=== PATIENT | female | born 2000 | race Caucasian/White ===

== ENCOUNTER → 2022-10-22 19:37 | Outpatient (CLI) | payer MEDICAID, SELFPAY ==
[2022-10-22 18:10] LABS: Basophils # 0.1 K/mm3 (0-0.2); Basophils % 0.7 % (0.1-2.0); Eosinophils # 0.1 K/mm3 (0.0-0.4); Eosinophils % 0.7 % (0.1-12.0); Hematocrit 48.5 % (37.0-47.0); Hemoglobin 15.4 g/dL (12.2-16.2); Lymphocytes # 2.8 K/mm3 (0.7-4.5); Lymphocytes % 27.2 % (10-50); Mean Corpuscular HGB Conc 31.7 g/dL (31.8-35.4); Mean Corpuscular Hemoglobin 29.4 pg (27.0-31.2); Mean Corpuscular Volume 92.8 fl (81-99); Mean Platelet Volume 9.2 fl (7.4-10.4); Monocytes # 0.6 K/mm3 (0.1-1.0); Monocytes % 5.9 % (1.7-9.3); Neutrophils # 6.8 K/mm3 (1.8-7.8); Neutrophils % 65.5 % (37.0-80.0); Platelet Count 279 K/mm3 (142-424); Red Blood Count 5.23 M/mm3 (4.20-5.40); White Blood Count 10.4 K/mm3 (4.8-10.8)
[2022-10-22 18:57] LABS: Alanine Aminotransferase 29 U/L (12-78); Albumin Level 4.5 g/dl (3.5-5.0); Albumin/Globulin Ratio 1.9 (1.1-1.8); Alkaline Phosphatase 72 U/L (38-126); Anion Gap 14.1 mEq/L (5-15); Aspartate Amino Transferase 23 U/L (14-36); Bilirubin,Total 0.5 mg/dl (0.2-1.3); Blood Urea Nitrogen 9 mg/dl (7-17); Carbon Dioxide 28 mmol/L (22.0-30.0); Chloride 102 mmol/L (98-107); Estimated Glomerular Filt Rate 103 ml/min (>60); GFR (African American) 124 ML/MIN (>60); Globulin 2.4 g/dL (1.3-3.2); Glucose 69 mg/dl (74-100); Potassium 4.1 mmoL/L (3.5-5.1); Sodium 140 mmol/L (136-145); Total Protein,Serum 6.9 g/dl (6.3-8.2)
== END ==
PROVIDERS: PCP Family Medicine; Visit Provider Family Medicine
DX: R10.2 Pelvic and perineal pain (principal); N39.0 Urinary tract infection, site not specified
CPT/HCPCS: 80053; 85025; 87086

== ENCOUNTER → 2022-10-23 15:04 | Outpatient (CLI) | payer MEDICAID, SELFPAY ==
--- NOTE | 2022-10-23 15:12 | XR_ITS ---
FINAL REPORT CLINICAL HISTORY: low back pain FINDINGS: LUMBAR SPINE Three views were obtained. There is no acute fracture. There is no malalignment. The disc spaces are preserved. There is no soft tissue abnormality. IMPRESSION: No acute bony abnormality. Reviewed, Interpreted and Dictated by Kai Milton MD Transcribed by Cassandra Kennedy Authenticated and [facility]
--- NOTE | 2022-10-23 15:12 | XR_ITS ---
FINAL REPORT CLINICAL HISTORY: hematuria COMPARISON: none FINDINGS: ABDOMEN SINGLE VIEW / KUB A single view of the abdomen was obtained with a coned down view of the pelvis. There is a nonspecific bowel gas pattern. There is no significant stool burden. There are no abnormally dilated loops of small bowel. No abnormal calcification is identified. IMPRESSION: No acute process. Reviewed, Interpreted and Dictated by Kai Milton MD Transcribed by Carolina Her Authenticated and [facility]
[2022-10-23 15:44] LABS: Urine Pregnancy, HCG Qual. Negative (Negative)
== END ==
PROVIDERS: Physician Assistant; PCP Family Medicine; Visit Provider Family Medicine
DX: M54.50 Low back pain, unspecified (principal); R31.9 Hematuria, unspecified
CPT/HCPCS: 72100; 74018; 81025

== ENCOUNTER → 2023-01-21 14:46 | Outpatient (CLI) | payer MEDICAID, SELFPAY ==
[2023-01-21 15:37] LABS: HCG,Quantitative 1968 mIU/ml (0-5.42)
[2023-01-23 14:28] LABS: Progesterone 12.4 ng/mL (.)
== END ==
PROVIDERS: PCP Nurse Practitioner Family; Visit Provider Obstetrics & Gynecology
DX: Z32.01 Encounter for pregnancy test, result positive (principal)
CPT/HCPCS: 36415; 84144; 84702

== ENCOUNTER → 2023-02-16 15:15 | Outpatient (CLI) | payer MEDICAID, SELFPAY | PROVIDERS: Visit Provider Obstetrics & Gynecology | DX: Z34.91 Encounter for supervision of normal pregnancy, unspecified, first trimester (principal); Z3A.08 8 weeks gestation of pregnancy | CPT/HCPCS: 87086 ==

== ENCOUNTER → 2023-03-09 10:53 | Outpatient (CLI) | payer MEDICAID, SELFPAY ==
[2023-03-09 12:03] LABS: Basophils % 0.3 % (0.1-2.0); Eosinophils # 0.1 K/mm3 (0.0-0.4); Eosinophils % 0.6 % (0.1-12.0); Hematocrit 44.5 % (37.0-47.0); Hemoglobin 14.6 g/dL (12.2-16.2); Lymphocytes # 2.3 K/mm3 (0.7-4.5); Lymphocytes % 15.7 % (10-50); Mean Corpuscular HGB Conc 32.8 g/dL (31.8-35.4); Mean Corpuscular Volume 91.4 fl (81-99); Monocytes # 0.7 K/mm3 (0.1-1.0); Monocytes % 4.4 % (1.7-9.3); Neutrophils # 11.8 K/mm3 (1.8-7.8); Neutrophils % 79.1 % (37.0-80.0); Platelet Count 255 K/mm3 (142-424); Red Blood Count 4.87 M/mm3 (4.20-5.40); White Blood Count 14.9 K/mm3 (4.8-10.8)
[2023-03-10 10:31] LABS: Rapid Plasma Reagin Ab Titer Non Reactive (NonRea<1:1)
[2023-03-12 12:49] LABS: HIV Screen 4th Generation wRfx Non Reactive; Hepatitis B Surface Antigen Negative
[2023-03-12 12:50] LABS: Hepatitis C Antibody Non Reactive
== END ==
PROVIDERS: PCP Family Medicine; Visit Provider Obstetrics & Gynecology
DX: Z34.91 Encounter for supervision of normal pregnancy, unspecified, first trimester (principal); Z3A.11 11 weeks gestation of pregnancy
CPT/HCPCS: 36415; 85025; 86593; 86703; 86762; 86850; 87340; 87380; G0432

== ENCOUNTER 2023-07-06 09:02 | Outpatient (CLI) | payer MEDICAID, SELFPAY ==
[2023-07-06 09:49] LABS: Basophils % 0.2 % (0.1-2.0); Eosinophils # 0.2 K/mm3 (0.0-0.4); Eosinophils % 0.9 % (0.1-12.0); Hematocrit 36.8 % (37.0-47.0); Hemoglobin 12.6 g/dL (12.2-16.2); Lymphocytes # 2.4 K/mm3 (0.7-4.5); Lymphocytes % 13.6 % (10-50); Mean Corpuscular HGB Conc 34.1 g/dL (31.8-35.4); Mean Corpuscular Hemoglobin 31.4 pg (27.0-31.2); Mean Corpuscular Volume 91.8 fl (81-99); Mean Platelet Volume 8.4 fl (7.4-10.4); Monocytes # 0.8 K/mm3 (0.1-1.0); Monocytes % 4.4 % (1.7-9.3); Neutrophils # 14.3 K/mm3 (1.8-7.8); Neutrophils % 80.9 % (37.0-80.0); Platelet Count 243 K/mm3 (142-424); Red Cell Distribution Width 13.4 % (11.5-17.5); White Blood Count 17.7 K/mm3 (4.8-10.8)
[2023-07-06 09:55] LABS: Glucose,Fasting 80 mg/dl (74-100)
[2023-07-06 09:56] LABS: MANUAL DIFFERENTIAL MANUAL DIFFERENTIAL (MANUAL DIFF)
[2023-07-06 10:50] VITALS: BP 137/59; PULSE 77; RESP 18; TEMP 36.8; O2SAT 99
[2023-07-06 11:03] LABS: Eosinophils % 2 % (0-3); Lymphocytes % 14 % (10-50); Monocytes % 5 % (2-9); Neutrophils % 78 % (42-76); Total Cells Counted 100
[2023-07-06 11:04] LABS: Platelet Estimate Normal; RBC Morphology Normal
[2023-07-06 11:15] LABS: Glucose 1 Hour 92 mg/dL (74-100)
== END 2023-07-06 11:00 | disposition home or self-care (01) ==
PROVIDERS: PCP Nurse Practitioner Family; Visit Provider Obstetrics & Gynecology
DX: Z3A.28 28 weeks gestation of pregnancy; O30.043 Twin pregnancy, dichorionic/diamniotic, third trimester; Z67.91 Unspecified blood type, Rh negative
CPT/HCPCS: 36415; 82951; 85007; 85025; 85027; 96372; J2790

== ENCOUNTER → 2023-07-08 13:23 | Outpatient (CLI) | payer MEDICAID, SELFPAY ==
--- NOTE | 2023-07-08 13:33 | US_ITS ---
PROCEDURE: US OB BIOPHYSICAL PROFILE CLINICAL INDICATION: Di/Di Twins-BPP/YVAN and UA Doppler COMPARISON: FINDINGS: Transabdominal sonographic images of the uterus were obtained. From her established due date she is 29weeks 0 days. Twin A: The following parameters are obtained: Viable fetus in the breech presentation with an anterior placenta grade 1. The fluid is within normal limits. The fetus is active and breathing movement is seen. heart rate: 135bpm bpm. The fluid appears to be normal with an equal amount of fluid on either side of the amnion. No obvious anomalies are present: Profile, nasion, bladder, diaphragm, kidneys, four-chamber heart, stomach, three-vessel cord, appear normal. Mild unilateral renal pyelectasis measuring 4.9 mm SD ratio slightly elevated 4.38-5.28. Amniotic fluid index: 12.54cm, MVP 6.2 cm Qualitative AFV: 2 breathing movements: 2 Gross body movements: 2 Tone: 2 Biophysical profile score: 8 Twin B: Following parameters are obtained: Viable fetus in the breech presentation with a posterior placenta grade 1. Fluid is within normal limits. Fetus is active and breathing movements are seen. heart rate: 135 BPM SD ratio 4.05-4.65 No obvious anomalies evident.Kidneys, diaphragm, stomach, bladder, four-chamber heart, three-vessel cord appear normal. Quantitative AFV: 2 breathing movements: 2 Gross body movements: 2 tone: 2 Biophysical profile: 8 IMPRESSION: 1. Viable twin with both fetuses in the breech presentation. 2. There appear to be 2 placentas, 1 anteriorly and 1 posteriorly. 3. SD ratios are slightly elevated for both fetuses. 4. The fluid is within normal limits around each fetus. 5. There is mild unilateral renal pyelectasis on fetus A measuring 4.9 mm. Suggest follow-up. 6. Biophysical profile is 8/8 for both fetuses with good breathing movement seen in each fetus. Dictated by: Roger Gonsalves MD 07/09/2023 16:35 Roger Gonsalves MD in [place] 07/09/2023 16:35
== END ==
LOC: RAD 13:23
PROVIDERS: PCP Nurse Practitioner Family; Visit Provider Obstetrics & Gynecology
DX: O30.043 Twin pregnancy, dichorionic/diamniotic, third trimester (principal); Z3A.28 28 weeks gestation of pregnancy
CPT/HCPCS: 76819; 76820

== ENCOUNTER 2023-07-23 12:34 | Outpatient (CLI) | payer MEDICAID, SELFPAY ==
--- NOTE | 2023-07-23 12:34 | US_ITS ---
PROCEDURE: US OB BIOPHYSICAL PROFILE CLINICAL INDICATION: Di/Di Twins-US OB BPP/YVAN and UA Doppler COMPARISON: FINDINGS: Transabdominal sonographic images of the pelvis were obtained. From her established due date she is 31weeks 1day. DICHORIONIC DIAMNIOTIC TWINS. TWIN A: The following parameters are obtained: Viable fetus in the breech presentation with an anterior placenta grade 1. heart rate: 142bpm bpm. Amniotic fluid index: 10.87cm, MVP 2.08 cm for twin A Qualitative AFV: 2 breathing movements: 2 Gross body movements: 2 Tone: 2 Biophysical profile score: 8 Doppler evaluation of the umbilical artery: SD ratio: 3.42-3.78. Resistive index: 0.69 No obvious anomalies evident.Kidneys, four-chamber heart, bladder, three-vessel cord appear normal. TWIN B: The following parameters are obtained: Viable fetus in the cephalic presentation with a posterior placenta grade 1 heart rate: 126bpm Amniotic fluid index: 10.87cm, MVP 5.62 cm for twin B Qualitative AFV: 2 breathing movements: 2 Gross body movements: 2 Tone: 2 Biophysical profile score: 8 Doppler evaluation of the umbilical artery: SD ratio: 3.8-4.29. Resistive index: 0.69 No obvious anomalies evident. Four-chamber heart, lips and nose, bladder, three-vessel cord, kidneys, appear normal. IMPRESSION: 1. Viable twin dichorionic, diamniotic twins. 2. Twin A is in the breech presentation with an anterior placenta 1. 3. The fluid is within normal limits around Twin A. 4. Biophysical profile for twin A is 8/8 with good breathing movement seen. SD ratio is normal for twin A. 5. Twin B is in the vertex presentation with a posterior placenta grade 1. 6. The fluid is within normal limits around Twin B. MVP 5.62 for twin B 7. Biophysical profile 8/8 with good breathing movement seen in twin B. SD ratio is normal for twin B. 8. Total YVAN for all 4 quadrants is 10.87 cm. Dictated by: Roger Gonsalves MD 07/23/2023 15:57 Roger Gonsalves MD in [facility] 07/23/2023 15:57
== END 2023-07-23 23:59 ==
LOC: RAD 12:34
PROVIDERS: PCP Nurse Practitioner Family; Visit Provider Obstetrics & Gynecology
DX: O30.043 Twin pregnancy, dichorionic/diamniotic, third trimester (principal); Z3A.31 31 weeks gestation of pregnancy
CPT/HCPCS: 76819; 76820

== ENCOUNTER 2023-08-03 15:51 | Outpatient (CLI) | payer MEDICAID, SELFPAY ==
--- NOTE | 2023-08-03 15:54 | US_ITS ---
PROCEDURE: US OB BIOPHYSICAL PROFILE CLINICAL INDICATION: NST Non reactive on One of the Twins-Baby Girl COMPARISON: Ultrasound July 23, 2023 FINDINGS: Transabdominal sonographic images of the uterus were obtained. From her established due date she is 32weeks 5days. Twin gestation. TWIN A: The following parameters are obtained: Viable fetus in the breech presentation with an anterior placenta grade 1. The cervix measures 3.53 cm. heart rate: 122bpm Amniotic fluid: MVP 1.64 cm. Qualitative AFV: 2 breathing movements: 2 Gross body movements: 2 Tone: 2 Biophysical profile score: 8 No obvious anomalies evident.Kidneys, stomach, bladder, four-chamber heart, three-vessel cord appear normal. TWIN B: The following parameters are obtained: Viable fetus in the cephalic presentation with a posterior placenta grade 1. heart rate 126 BPM. Amniotic fluid: MVP 3.01 cm. Qualitative YVAN: 2 breathing movements: 2 Gross body movements: 2 tone: 2 Biophysical profile score: 8 No obvious anomalies evident. Kidneys, stomach, bladder, four-chamber heart, three-vessel cord appear normal. IMPRESSION: 1. Viable twin with TWIN A in the breech presentation with an anterior placenta grade 1, TWIN B is in the cephalic presentation with a posterior placenta grade 1. 2. Dichorionic diamniotic twins. 3. Fluid is slightly low in TWIN A with the MVP at 1.64 cm. 4. TWIN B fluid is normal with the MVP at 3.01 cm. 5. Biophysical profile is 8/8 for both twins. breathing movement and movement is seen in both twins. Dictated by: Roger Gonsalves MD 08/04/2023 09:05 Roger Gonsalves MD in [place] 08/04/2023 09:05
== END 2023-08-03 23:59 ==
LOC: RAD 15:52
PROVIDERS: PCP Family Medicine; Visit Provider Obstetrics & Gynecology
DX: O28.8 Other abnormal findings on antenatal screening of mother (principal); O30.043 Twin pregnancy, dichorionic/diamniotic, third trimester; Z3A.32 32 weeks gestation of pregnancy
CPT/HCPCS: 76819

== ENCOUNTER 2023-08-20 14:05 | Outpatient (CLI) | payer MEDICAID, SELFPAY ==
--- NOTE | 2023-08-20 14:06 | US_ITS ---
PROCEDURE: US OB BIOPHYSICAL PROFILE CLINICAL INDICATION: TWINS-BPP only COMPARISON: US US OB BIOPHYSICAL PROFILE from 07/23/2023 US US OB BIOPHYSICAL PROFILE from 08/03/2023 FINDINGS: Transabdominal sonographic images of the uterus were obtained. From her established due date she is 35weeks 1day. The following parameters are obtained: Fetus A: Viable Fetus in the breech presentation with and anterior placenta grade 2. heart Rate = 135bpm Amniotic fluid index: 8.91cm Qualitative AFV:2 Breathing movements: 2 Gross Body Movements: 2 Tone: 2 Biophysical profile score: 8 Doppler evaluation of the umbilical artery: SD ratio: 2.72 Resistive index: 0.63 No obvious anomalies evident.Kidneys, nose, lips, stomach, bladder, four-chamber heart, three-vessel cord appear normal. Fetus B: Viable fetus in the cephalic presentation with a posterior placenta grade 2. heart rate 135 BPM Amniotic Fluid index: 8.91 cm, MVP 5.23 cm on right side. Qualitative YVAN: 2 breathing movements: 2 Gross body movements: 2 tone: 2 Biophysical profile 8 S/D ratio 2.9. Resistance index: 0.65 No obvious anomalies evident. Kidneys, stomach, bladder, four-chamber heart, three-vessel cord appear normal. IMPRESSION: 1. Viable twin with fetus A in the breech presentation with an anterior placenta grade 2. 2. Fetus B in the cephalic presentation with a posterior placenta grade 2. 3. There appears to be adequate fluid around each fetus. MVP is 5.23 cm. 4. There are 2 separate placentas both anteriorly located and posterior located. There is a membrane both fetuses. Dichorionic diamniotic. 5. Biophysical profile is 8/8 for both fetuses. There is good breathing movement and movement seen for both fetuses. 6. SD ratios are normal for both fetuses. Dictated by: Roger Gonsalves MD 08/20/2023 16:46 Roger Gonsalves MD in [place] 08/20/2023 16:46
== END 2023-08-20 23:59 ==
LOC: RAD 14:06
PROVIDERS: PCP Family Medicine; Visit Provider Obstetrics & Gynecology
DX: O28.8 Other abnormal findings on antenatal screening of mother (principal); O30.043 Twin pregnancy, dichorionic/diamniotic, third trimester; O99.323 Drug use complicating pregnancy, third trimester; Z67.91 Unspecified blood type, Rh negative
CPT/HCPCS: 76819; 76820

== ENCOUNTER 2023-09-09 04:39 | Inpatient (IN) | payer MEDICAID, SELFPAY ==
[2023-09-09] VITALS (7 sets, daily range): BP systolic 116–143; BP diastolic 63–79; PULSE 88–110; RESP 16–18; TEMP 36.6–36.8; O2SAT 97–100; BMI 40.5
[2023-09-09 05:38] LABS: Microscopic, Urine URINE MICROSCOPIC (MICROSCOPIC)
[2023-09-09 05:40] LABS: Basophils % 0.1 % (0.1-2.0); Eosinophils # 0.1 K/mm3 (0.0-0.4); Eosinophils % 0.7 % (0.1-12.0); Hemoglobin 12.6 g/dL (12.2-16.2); Lymphocytes # 1.7 K/mm3 (0.7-4.5); Lymphocytes % 9.8 % (10-50); Mean Corpuscular HGB Conc 32.4 g/dL (31.8-35.4); Mean Corpuscular Hemoglobin 29.4 pg (27.0-31.2); Mean Corpuscular Volume 90.7 fl (81-99); Mean Platelet Volume 9.3 fl (7.4-10.4); Monocytes # 1.2 K/mm3 (0.1-1.0); Monocytes % 6.9 % (1.7-9.3); Neutrophils % 82.4 % (37.0-80.0); Platelet Count 278 K/mm3 (142-424); Red Cell Distribution Width 13.8 % (11.5-17.5)
[2023-09-09 05:40] LABS: Appearance,Urine CLEAR (Clear); Bilirubin,Urine Negative (Negative); Blood, Urine Negative (Negative); Color,Urine YELLOW (Yellow); Glucose,Urine (UA) Negative (Negative); Ketones,Urine Negative (Negative); Leukocyte Esterase,Urine Negative (Negative); Nitrate,Urine Negative (Negative); PH,Urine 6.5 (5.0-8.5); Protein,Urine Negative (Negative); Specific Gravity, Urine 1.025 (1.005-1.030); Urobilinogen,Urine 0.2 EU/dl (0.2)
[2023-09-09 05:42] LABS: MANUAL DIFFERENTIAL MANUAL DIFFERENTIAL (MANUAL DIFF)
[2023-09-09 05:46] LABS: Chloride 111 mmol/L (98-107); Potassium 3.9 mmoL/L (3.5-5.1); Sodium 137 mmol/L (136-145)
[2023-09-09 05:48] LABS: Blood Urea Nitrogen 5 mg/dl (7-17); Creatinine Clearance Estimated 386 mL/min (50-200); Estimated Glomerular Filt Rate 194 ml/min (>60); GFR (African American) 235 ML/MIN (>60)
[2023-09-09 05:49] LABS: Alanine Aminotransferase 19 U/L (12-78); Albumin Level 3.6 g/dl (3.5-5.0); Albumin/Globulin Ratio 1.4 (1.1-1.8); Alkaline Phosphatase 177 U/L (38-126); Anion Gap 5.9 mEq/L (5-15); Aspartate Amino Transferase 25 U/L (14-36); Bilirubin,Total 0.3 mg/dl (0.2-1.3); Calcium 9.1 mg/dl (8.4-10.2); Carbon Dioxide 24 mmol/L (22.0-30.0); Globulin 2.5 g/dL (1.3-3.2); Glucose 79 mg/dl (74-100); Total Protein,Serum 6.1 g/dl (6.3-8.2)
[2023-09-09 05:52] LABS: Bacteria,Urine 1+ /lpf; Mucus,Urine 1+ /lpf
[2023-09-09 05:55] LABS: Amphetamine/Metha Screen,Urine Negative ng/ml (<1000)
[2023-09-09] MEDS: LACTATED RINGERS 1000ML 1,000 ML 25 ML IV (05:55)
[2023-09-09 05:56] LABS: Lymphocytes % 11 % (10-50); Monocytes % 6 % (2-9); Neutrophils % 83 % (42-76); Total Cells Counted 100
[2023-09-09 05:56] LABS: Barbiturates Screen,Urine Negative ng/ml (<200); Benzodiazepines Screen,Urine Negative ng/ml (<200)
[2023-09-09 05:57] LABS: Cannabinoid Screen,Urine Positive ng/ml (<50); Cocaine Screen,Urine Negative ng/ml (<300)
[2023-09-09 05:57] LABS: Platelet Estimate Normal; RBC Morphology Normal
[2023-09-09 05:58] LABS: Methadone Screen,Urine Negative ng/ml (<300)
[2023-09-09 05:59] LABS: Opiate Screen,Urine Negative ng/ml (<300); Phencyclidine Screen,Urine Negative ng/ml (<25)
--- NOTE | 2023-09-09 06:56 | P.HP_ITS ---
OB - H&P: HPI Antepartum History of Present Illness Chief complaint: Scheduled History of present illness: Ms Martha Peraza is a 23 yo at 38w0d who presents to [facility] for scheduled , di/di twin . She has had good care. She is complete with childbearing and desires permanent sterilization at time of . Babies are active. History of Present Criteria for establishing EDC:: based on 1st trimester US only care: good care Ultrasounds: normal mid trimester US Obstetrical complications: none Medical complications: none Labs Blood type: A (-) negative Rubella: immune RPR/VDRL: nonreactive GBS status: negative [facility]AG: [facility] Disclaimer: The information contained in this section may have been updated after the patient was seen, as this information can be updated by other users. Medical History (Updated 09/09/23 @ 07:03 by Jessica Hoyt DO) 38 weeks gestation of Dichorionic diamniotic twin gestation Drug use affecting , antepartum History of gestational hypertension Marijuana use during Methamphetamine abuse Request for sterilization Rh negative status during Tobacco use affecting , antepartum Surgical History History of surgery on arm History of wisdom tooth extraction Family History Grandmother Cancer Maternal-ovarian Social History Smoking Status: Current every day smoker tobacco type: cigarettes second hand exposure: Yes alcohol intake: current substance use type: marijuana current occupational status: employed Travel in the last 8 weeks: None household members: children housing: house marital status: Review of Systems Review of Systems Review of systems:: pertinent systems reviewed and negative unless documented below Meds Home Medications and Allergies Home Medications Medication Instructions Recorded Confirmed Type vits no.126-ferrous fum tab PO DAILY 03/26/23 09/04/23 History 28 mg iron-folic acid 800 mcg tablet (Classic ) albuterol sulfate 90 mcg/actuation 1 inh inhalation QID #6.7 grams 05/29/23 09/04/23 Rx aerosol inhaler New Prescriptions to Start Prescriptions: Allergies Allergy/AdvReac Type Severity Reaction Status Date / Time erythromycin base Allergy swelling Verified 09/04/23 08:37 [From E-Mycin] latex Allergy Verified 09/04/23 08:37 OB - H&P: Exam Physical Exam Vital signs: Temp Pulse Resp BP Pulse Ox O2 Del Method 98.1 F 107 H 18 143/78 H 97 Room Air 09/09/23 06:16 09/09/23 06:16 09/09/23 06:16 09/09/23 06:16 09/09/23 06:16 09/09/23 06:16 Constitutional no acute distress and cooperative Routine HEENT Exam Head: Present normocephalic and atraumatic Eye: Absent conjunctivae pink ENT: Present mucous membranes moist Routine Neck Exam Present full ROM Routine Respiratory Exam Present CTA bilaterally and normal respiratory effort Routine Cardiovascular Exam Present RRR Routine Abdominal Exam Present soft (Gravid); Absent tenderness Routine Rectal Exam Patient deferred: visual exam Routine Exam External: Present normal urethra appearance; Absent erythema, tenderness, lesions or lacerations Routine Extremities Exam Present full ROM; Absent edema or calf tenderness Routine Neurological Exam Present alert, moving all extremities and normal speech Routine Psychiatric Exam Present normal affect and cooperative OB - Results Labs Labs: Short CBC 09/09/23 Range/Units 05:20 WBC 17.0 H (4.8-10.8) K/mm3 Hgb 12.6 (12.2-16.2) g/dL Hct 39.0 (37.0-47.0) % Plt Count 278 (142-424) K/mm3 BMP 09/09/23 05:20 Sodium 137 Potassium 3.9 Chloride 111 H Carbon Dioxide 24 BUN 5 L Creatinine 0.40 L Glucose 79 Calcium 9.1 Liver Function 09/09/23 Range/Units 05:20 Total Bilirubin 0.3 (0.2-1.3) mg/dl AST 25 (14-36) U/L ALT 19 (12-78) U/L Alkaline Phosphatase 177 H (38-126) U/L Albumin 3.6 (3.5-5.0) g/dl Urine 09/09/23 Range/Units 05:15 Urine Color Yellow (Yellow) Urine Appearance Clear (Clear) Urine pH 6.5 (5.0-8.5) Ur Specific [place] 1.025 (1.005-1.030) Urine Protein Negative (Negative) Urine Glucose (UA) Negative (Negative) OB - A/P Antepartum (1) 38 weeks gestation of : Status: Acute (2) Dichorionic diamniotic twin gestation: Status: Acute (3) Tobacco use affecting , antepartum: Status: Acute (4) Marijuana use during : Status: Acute (5) History of gestational hypertension: Status: Acute (6) Rh negative status during : Status: Acute (7) Request for sterilization: Status: Acute Additional Plan Additional Information:: Admit to L&D for primary with bilateral salpingectomy Reviewed risks, benefits, alternatives, expectations and possible complications of surgery. All questions addressed and answered. She voiced understanding of risks and possible complications. Consent form singed. Proceed with scheduled primary , bilateral salpingectomy
--- NOTE | 2023-09-09 07:42 | HMH.PHAINT1 ---
Pharmacy Intervention Comments: MEDICATION RECONCILIATION COMPLETED ON PATIENT USING EXTERNAL FILL HISTORY FROM PHARMACY. -CHIQUI MARCOS, EDUARD
--- NOTE | 2023-09-09 08:13 | EXP.ANES.CKL ---
[facility] Disclaimer: The information contained in this section may have been updated after the patient was seen, as this information can be updated by other users. Medical History (Updated 09/09/23 @ 07:03 by Jessica Hoyt DO) 38 weeks gestation of Dichorionic diamniotic twin gestation Drug use affecting , antepartum History of gestational hypertension Marijuana use during Methamphetamine abuse Request for sterilization Rh negative status during Tobacco use affecting , antepartum Surgical History History of surgery on arm History of wisdom tooth extraction Family History Grandmother Cancer Maternal-ovarian Social History Smoking Status: Current every day smoker tobacco type: cigarettes second hand exposure: Yes alcohol intake: current substance use type: marijuana current occupational status: employed Travel in the last 8 weeks: None household members: children housing: house marital status: [facility] Anesthesia Checklist Patient Identification Patient Identification: Arm Band Structural Data Admitted From: Inpatient Planned Operative Procedure/s: Primary C/S Consent for Planned Operative Procedure(s) Verified: Yes Verified Documents: Surgical Consent and History and Physical NPO Status Verified Time NPO: 00:00 Additional verifications Anesthesia Reactions: No Airway Assessment Mallampati Score:: Class II C-Spine Mobility Assessed: Yes TMJ Mobility Assessed: Yes Dentition: Good Dentition Neurological Assessment Level of Consciousness: Awake and Alert Anesthesia Plan Anesthesia Risk discussed: Yes Anesthesia Plan: Verified ASA Class: I Anesthesia Type: Spinal (with Bilateral TAP Block. Risks/benefits explained. Pt verbalized understanding)
[2023-09-09] MEDS: CEFAZOLIN SODIUM 2 GM in 0.9 % SODIUM CHLORIDE 100 ML IV ×2 (08:31→16:10)
--- NOTE | 2023-09-09 09:53 | P.OP_ITS ---
Date of procedure: 09/09/23 Pre-op Diagnosis:: 1. IUP at 38 weeks 2. Di/di twin 3. Tobacco use during 4. Marijuana use during 5. History of GHTN in prior 6. Rh negative 7. Complete family status, desires permanent sterilization Post-op Diagnosis:: 1. IUP at 38 weeks 2. Di/di twin 3. Tobacco use during 4. Marijuana use during 5. History of GHTN in prior 6. Rh negative 7. Complete family status, desires permanent sterilization Procedure performed:: Primary low transverse section, bilateral salpingectomy Surgeon:: Jessica Hoyt DO Zoo Director(s):: Roger Gonsalves MD WAREHOUSE SHIPPING SUPERVISOR:: Marquise Bradley Anesthesia: spinal Estimated blood loss (mL): 600 Clinical Note:: Ms Martha Peraza is a 23 yo at 38w0d who presents to [facility] for scheduled , di/di twin . She has had good care. She is complete with childbearing and desires permanent sterilization at time of . Babies are active. Operative findings:: 1. Live baby boy in josiane breech presentation, Sawyer, weighing 5 lb 8 oz, AGPARs 9 (1 min), 10 (5 min) and and live baby girl in cephalic presentation, Alok, weighing 5 lb 9 oz, AGPARs 8 (1 min), 9 (5 min) 2. Grossly normal appearing uterus, bilateral fallopian tubes and ovaries Operative note:: The risks, benefits and alternatives of the procedure were reviewed with the patient. Informed consent was obtained. Patient was taken to the operating room where spinal anesthesia was placed. The patient received 2 grams of Ancef preoperatively. Patient was placed in dorsal supine position with a leftward tilt. SCDs in place. Morales catheter had been placed and was draining clear urine prior to the start of the procedure. heart tones were obtained. Patient was then prepped and draped in normal sterile fashion. Allis clamp test was performed to ensure adequate anesthesia. A Pfannenstiel skin incision was made 2 cm above pubic symphysis. This was carried through to underlying layer of fascia. Fascia was incised in midline, extended laterally with Jenkins scissors. Superior aspect of fascial incision was grasped with two Kathleen clamps, elevated up, and rectus muscle dissected off bluntly and sharply with Jenkins scissors. Inferior aspect of fascial incision was grasped with two Kathleen clamps, elevated up, and rectus muscle dissected off bluntly and sharply with Jenkins scissors. The retcus muscle was then in the midline and the peritoneum was entered bluntly with a digit. Peritoneal incision was then extended superiorly and inferiorly with good visualization of the bladder. Matt retractor was inserted. The lower uterine segment was incised in a transverse fashion. Clear amniotic fluid was noted. Baby A was josiane breech presentation. He was delivered using standard breech delivery techniques without difficulty. Mouth and nares bulb suctioned, warmed, dried and stimulated. Cord was clamped and cut. Spontaneous cry noted. He was handed off to awaiting pediatric staff. Amniotomy was performed for baby B. Clear fluid noted. Her head was delivered without difficulty. Remainder of body was delivered without difficulty. Mouth and nares were bulb suctioned. Spontaneous cry was noted. Cord was clamped and cut. The infant was handed to awaiting pediatric staff in stable condition. Dr. Hdz and Dr. Delacruz were present. Apgars for baby A were 9(1 min), 10(5 min). Apgars for baby B were A were 8(1 min), 9(5 min).Gentle traction on the umbilical cord and uterine fundal massage delivered the placenta. Placenta was intact. Placenta will be sent to pathology for review. Uterus was cleared of all clots and debris with a moist laparotomy sponge. Corners of the uterine incision were grasped with Allis clamps. The uterine incision was reapproximated with # 1 Vicryl suture in a running, locked stitch. Second layer of the same stitch was used to imbricate the incision. Vesicouterine peritoneum was reapproximated in a running locked stitch with 0- Vicryl suture. Hemostasis was noted. Posterior cul-de-sac was cleaned with moist laparotomy sponge. Gutters cleared of all clots and debris with a moist laparotomy sponge. Reinspection of the lower uterine segment demonstrated hemostasis. Attention was then turned to the left fallopian tube, which was grasped with a Jonas clamp. Enseal device was used to clamp, ligate and transect the right mesosalpinx and fallopian tube at uterine cornua,. Same procedure was carried out on the contralateral side At this point all instruments and sponges were removed from the pelvis.? The peritoneum was grasped with Verna clamps x 3. The peritoneum was reapproximated with 0 Vicryl suture in a running stitch. The rectus muscle was reapproximated with 2-0 Vicryl. Hemostasis was noted. The corners of the fascia were grasped with Kathleen clamps, and the fascia was reapproximated with two # 1 Vicryl suture overlapped to the right of midline. Subcutaneous tissue was irrigated with clear return of fluids. The subcutaneous tissue was reapproximated with 3-0 Vicryl. The skin was reapproximated with Insorb cornell. Steri strips applied over closed incision. ABD and tape was placed over closed Pfannenstiel skin incision. At the end of the procedure, the uterus was firm with minimal vaginal bleeding. Patient tolerated the procedure well. Instrument, sponges and needle counts were correct x 2. Mom and babies were transported to recovery room in stable condition. Condition: stable Disposition: floor Specimens:: 1. Placentas and umbilical cords 2. Bilateral fallopian tubes Complications:: None
--- NOTE | 2023-09-09 10:06 | EXP.ANES.I ---
[facility] Anesthesia Record Part I Anesthesia Record I Intake, IV Amount: 2,000 Hydration: Adequate Estimated blood loss (mL): 600 Urine output (mL): 150 Blood Products used (#): none Blood Pressure: 119/71 SaO2: 99 Pulse Rate: 110 Airway Patency: Patent Respiratory Rate: 16 Temperature: 97.9 F Patient is:: Awake and Stable Stable to PACU at:: 09:55
--- NOTE | 2023-09-09 10:16 | SUR.OPER ---
baby A- [id number] baby B-[id number]
[2023-09-09] MEDS: OXYTOCIN/RINGERS LACTATE 30 UNITS/500 ML BAG 40 UNITS IV (10:30)
[2023-09-09] MEDS: ACETAMINOPHEN 500MG TAB 1000 MG PO ×3 (11:07→23:20)
[2023-09-09] MEDS: KETOROLAC 30MG/ML VIAL 30 MG IV ×2 (16:10→22:41)
[2023-09-09] MEDS: PRENATAL MULTIVITAMIN W/IRON 1 EACH PO (17:20)
[2023-09-10] MEDS: CEFAZOLIN SODIUM 2 GM in 0.9 % SODIUM CHLORIDE 100 ML IV (00:26)
[2023-09-10 06:13] LABS: Basophils % 0.2 % (0.1-2.0); Eosinophils # 0.1 K/mm3 (0.0-0.4); Eosinophils % 0.5 % (0.1-12.0); Hematocrit 37.7 % (37.0-47.0); Lymphocytes # 1.4 K/mm3 (0.7-4.5); Lymphocytes % 12.8 % (10-50); Mean Corpuscular HGB Conc 31.8 g/dL (31.8-35.4); Mean Corpuscular Hemoglobin 29.5 pg (27.0-31.2); Mean Platelet Volume 9.1 fl (7.4-10.4); Monocytes # 0.9 K/mm3 (0.1-1.0); Monocytes % 8.1 % (1.7-9.3); Neutrophils # 8.3 K/mm3 (1.8-7.8); Neutrophils % 78.3 % (37.0-80.0); Platelet Count 249 K/mm3 (142-424); Red Blood Count 4.06 M/mm3 (4.20-5.40); White Blood Count 10.6 K/mm3 (4.8-10.8)
[2023-09-10] MEDS: KETOROLAC 30MG/ML VIAL 30 MG IV (06:20)
[2023-09-10] MEDS: ACETAMINOPHEN 500MG TAB 1000 MG PO ×3 (06:21→18:09)
--- NOTE | 2023-09-10 07:31 | EXP.ACUTE.PN ---
Subjective *Date: 09/10/23 *Time: 07:35 Interval history: POD # 1 s/p PLTCS with bilateral salpingectomy Martha is feeling well. Pain controlled. Formula feeding. Appropriate lochia. Voiding without difficulty and passing flatus. Tolerating regular diet. No fever/chills, chest pain or shortness of breath. Denies headaches, vision changes, and swelling. Ambulating well ad yadira. Medical Exam Vital signs and Labs for Last 24 Hours: Vital Signs Temp Pulse Pulse Resp BP BP Pulse Ox 09/09/23 21:08 98.3 F 106 H 18 137/73 97 09/09/23 10:15 100 H 16 116/76 100 09/09/23 10:25 100 H 16 122/79 99 09/09/23 10:05 88 16 125/63 98 09/09/23 09:55 97.9 F 110 H 16 119/71 99 09/09/23 10:07 97.9 F 110 H 16 119/71 O2 Del Method 09/09/23 21:08 Room Air 09/09/23 10:15 Room Air 09/09/23 10:25 Room Air 09/09/23 10:05 Room Air 09/09/23 09:55 Room Air 09/09/23 10:07 Intake and Output 09/09/23 09/09/23 09/10/23 15:59 23:59 07:59 Intake Total 1999 Balance 1999 Intake: Intake, Total IV Amount 1999 Laboratory Results - last 24 hr 09/09/23 05:20: Blood Type A Negative, Antibody Screen Positive, Antibody Identification Anti-D, Crossmatch (AHG) See Detail 09/10/23 05:16: WBC 10.6 D, RBC 4.06 L, Hgb 12.0 L, Hct 37.7, MCV 93.0, MCH 29.5, MCHC 31.8, RDW 14.0, Plt Count 249, MPV 9.1, Neut % (Auto) 78.3, Lymph % (Auto) 12.8, [place] % (Auto) 8.1, Eos % (Auto) 0.5, Baso % (Auto) 0.2, Neut # (Auto) 8.3 H, Lymph # (Auto) 1.4, [place] # (Auto) 0.9, Eos # (Auto) 0.1, Baso # (Auto) 0.0 I & O for Labs for Last 24 Hours: Intake & Output 09/07/23 09/08/23 09/09/23 09/10/23 23:59 23:59 23:59 23:59 Intake Total 1999 Balance 1999 Weight 251 lb Head: Present atraumatic and normocephalic ENT: Present normal exam Neck: Present full ROM Respiratory: Present CTA bilaterally and normal respiratory effort Cardiac: Present Reg Rate and Rhythm GI: Present soft, tenderness (appropriate tenderness to palpation) and normal bowel sounds; Absent distention Comments:: Uterine fundus firm and below umbilicus, pfannenstiel incision clean/dry/intact with steri strips Rectal (female): Present deferred (female): Present deferred Extremities: Present full ROM; Absent edema or calf tenderness Neuro: Present alert, awake and moves all extremities Assessment and Plan *Assessment and plan (1) S/P : Status: Acute Category: Surgical Code(s): Z98.891 - History of uterine scar from previous surgery (2) 38 weeks gestation of : Status: Acute Category: Medical Code(s): Z3A.38 - 38 weeks gestation of (3) Dichorionic diamniotic twin gestation: Status: Acute Qualifiers: Trimester: third trimester Qualified Code(s): O30.043 - Twin , dichorionic/diamniotic, third trimester Category: Medical Code(s): O30.049 - Twin , dichorionic/diamniotic, unspecified trimester (4) History of gestational hypertension: Status: Acute Category: Medical Code(s): Z87.59 - Personal history of other complications of , childbirth and the puerperium (5) Marijuana use during : Status: Acute Category: Medical Code(s): O99.320 - Drug use complicating , unspecified trimester; F12.90 - Cannabis use, unspecified, uncomplicated (6) Tobacco use affecting , antepartum: Status: Acute Category: Medical Code(s): O99.330 - Smoking (tobacco) complicating , unspecified trimester (7) Rh negative status during : Status: Acute Category: Medical Code(s): O26.899 - Other specified related conditions, unspecified trimester; Z67.91 - Unspecified blood type, Rh negative Plan Continue routine care Encouraged increased ambulation Plan d/c home POD # 2 or POD # 3
--- NOTE | 2023-09-10 07:58 | P.PNANES_ITS ---
[facility] Anesthesia Record Part II Anesthesia Record Part II Discharge Time: 10:25 Destination: Obstetric PACU nurse assessment reviewed?: Yes Patient Condition:: Good Anesthesia Complications:: None Swallowing reflex intact?: Yes Airway Patency: Patent Cyanosis?: No Blood Pressure: 122/79 SaO2: 99 Respiratory Rate: 16 Pulse Rate: 100 Temperature: 97.9 F Mental Status: Alert & Oriented Pain level:: 0 Nausea and/or vomitting:: None Intake, IV Amount: 0 Hydration: Adequate
[2023-09-10 07:59] VITALS: BP 122/79; PULSE 100; RESP 16; TEMP 36.6; O2SAT 99
[2023-09-10 08:00] VITALS: BP 120/62; PULSE 95; RESP 17; TEMP 36.8; O2SAT 98
--- NOTE | 2023-09-10 09:29 | SW/DCPLANNER ---
Addendum entered by [facility] 09/16/23 08:22: Alok (infant female) cord screen is positive for THC. I have reported this to Central Intake ID# [id number]. Addendum entered by [facility] 09/15/23 10:55: Sawyer (infant male) cord screen is positive for THC. I have reported this to Central Intake ID# [id number]. Addendum entered by [facility] 09/10/23 15:06: Per Central Intake this case does NOT meet criteria for investigation. Addendum entered by [facility] 09/10/23 09:46: ID#: [id number] Original Note: I received a referral on this patient regarding drug use during . Patient tested positive on the following dates: 02/20/2023- THC, Amphetamines, Methamphetamines 03/30/2023- THC, Amphetamines, Methamphetamines 05/25/2023- THC 08/13/2023- THC 09/09/2023- THC. Patient admits to THC throughout up until two weeks ago. Patient stated that she has not used Methamphetamines since she found out she was at 7 weeks. Infant's urine drug screens were negative at delivery. Infant twins (Sawyer Peraza and Alok Peraza) were born on 09/09/2023. Per patient 's father is not involved. Patient does have one other child: Celia Morataya 10/10/2017. Patient stated that Social Service were involved w/ daughter in 2019 due to DV: closed case/child never removed. Patient, her mother and stepdad (Carina and Gustavo Samuel), their child (Rebel Canchola) and all three children will reside at [address] [place] [address]. Patient's contact number is [phone]. Patient is currently established w/ WIC and is not interested in HANDS. Patient stated that she has the following items at home: crib, carseat, clothing, diapers and will be bottlefeeding. PED MD will be Dr Martinez and she will have transportation to all follow up appointments. Patient stated that she is suppose to discharge tomorrow 09/11/2023 pending no setbacks. I will report drug use to Central Intake and follow up w/ ID #.
[2023-09-10] MEDS: RHO(D) IMMUNE GLOBULIN 1,500 UNIT SYRINGE 1500 UNIT IM (11:10)
[2023-09-10] MEDS: IBUPROFEN 400 MG TABLET 800 MG PO ×2 (12:09→20:44)
[2023-09-10] MEDS: SENNA 8.6MG TABLET 8.59999999999999964 MG PO (12:09)
[2023-09-10] MEDS: PRENATAL MULTIVITAMIN W/IRON 1 EACH PO (17:40)
[2023-09-10] MEDS: diphenhydrAMINE 25MG CAPSULE 25 MG PO ×2 (19:28→22:36)
[2023-09-10 20:30] VITALS: BP 132/81; PULSE 100; RESP 18; TEMP 36.5
[2023-09-11 00:40] VITALS: BP 134/70; PULSE 92; RESP 18; TEMP 36.4
[2023-09-11] MEDS: ACETAMINOPHEN 500MG TAB 1000 MG PO ×3 (00:52→11:53)
[2023-09-11] MEDS: IBUPROFEN 400 MG TABLET 800 MG PO ×2 (04:12→11:53)
[2023-09-11 08:40] VITALS: BP 133/70; PULSE 94; RESP 16; TEMP 36.6; O2SAT 99
--- NOTE | 2023-09-11 09:21 | P.DS_ITS ---
General Admission date:: 09/09/23 Discharge date: 09/11/23 HPI HPI HPI: POD # 2 s/p PTLCS with bilateral salpingectomy Feeling well. Pain controlled. Formula feeding. Light lochia. Voiding without difficulty and passing flatus. Tolerating regular diet. Denies fever/chills, chest pain and shortness of breath. No headaches, dizziness/lightheadedness or vision changes. No lower extremity swelling. Ambulating well ad yadira. Hospital Course Hospital Course Hospital Course: Ms Martha Peraza is a 23 yo at 38w0d who presents to [facility] for scheduled , di/di twin . She has had good care. She is complete with childbearing and desires permanent sterilization at time of . Margaret es are active. She underwent primary with bilateral salpingectomy on 09/09/23. She delivered a live baby boy in josiane breech presentation, Sawyer, weighing 5 lb 8 oz, AGPARs 9 (1 min), 10 (5 min) and and live baby girl in cephalic presentation, [facility], weighing 5 lb 9 oz, AGPARs 8 (1 min), 9 (5 min). EBL 600 mL. She did well /postoperatively. Pain controlled. Formula feeding. Light lochia. Voiding without difficulty and passing flatus. Tolerating regular diet. Denies fever/chills, chest pain and shortness of breath. No headaches, dizziness/lightheadedness or vision changes. Vital signs stable, afebrile. Heart regular rate and rhythm. Lungs clear to auscultation. Abdomen soft, nontender. No lower extremity swelling. Ambulating well ad yadira. Normal hospital course. She was discharged to home on POD # 2 with instructions to follow-up in the office in 2 weeks or sooner if needed. Exam Data for Last 24 hours Vital signs and Labs for Last 24 Hours: Temp Pulse Resp BP Pulse Ox O2 Del Method 97.5 F L 92 H 18 134/70 98 Room Air 09/11/23 00:40 09/11/23 00:40 09/11/23 00:40 09/11/23 00:40 09/10/23 08:00 09/10/23 08:00 Laboratory Results - last 24 hr 09/10/23 05:16: Screen Negative, Baby's Rh Status Positive, Rhogam Infusion Rhogam release I & O for Last 24 hours: Intake & Output 09/08/23 09/09/23 09/10/23 09/11/23 23:59 23:59 23:59 23:59 Intake Total 1999 0 / 0 Balance 1999 0 / 0 Weight 251 lb Constitutional Constitutional: no acute distress and cooperative *Routine HEENT Exam Head: Present normocephalic and atraumatic Eye: Absent conjunctivae pink ENT: Present mucous membranes moist *Routine Neck Exam Neck: Present full ROM *Routine Respiratory Exam Respiratory: Present CTA bilaterally and normal respiratory effort *Routine Cardiovascular Exam Cardiovascular: Present RRR *Routine Abdominal Exam Abdominal: Present soft and normoactive bowel sounds; Absent tenderness or distended Comments: Uterine fundus firm and below umbilicus, pfannenstiel incision clean/dry/intact with steri strips in place *Routine Rectal Exam Patient deferred: visual exam *Routine Exam Patient deferred: external exam *Routine Extremities Exam Extremities: Present full ROM; Absent edema or calf tenderness *Routine Neurological Exam Neurological: Present alert, moving all extremities and normal speech Routine Psychiatric Exam Psychiatric: Present normal affect and cooperative Results Data Completed and Pending Labs on day of discharge: Labs from last 24 hours 09/10/23 05:16 Screen Negative Baby's Rh Status Positive Rhogam Infusion Rhogam release DS: Diagnosis Discharge Diagnosis (1) S/P : Status: Acute Code(s): Z98.891 - History of uterine scar from previous surgery (2) 38 weeks gestation of : Status: Acute Code(s): Z3A.38 - 38 weeks gestation of (3) Dichorionic diamniotic twin gestation: Status: Acute Code(s): O30.049 - Twin , dichorionic/diamniotic, unspecified trimester Qualifiers: Trimester: third trimester Qualified Code(s): O30.043 - Twin , dichorionic/diamniotic, third trimester (4) History of gestational hypertension: Status: Acute Code(s): Z87.59 - Personal history of other complications of , childbirth and the puerperium (5) Marijuana use during : Status: Acute Code(s): O99.320 - Drug use complicating , unspecified trimester; F12.90 - Cannabis use, unspecified, uncomplicated (6) Tobacco use affecting , antepartum: Status: Acute Code(s): O99.330 - Smoking (tobacco) complicating , unspecified trimester (7) Rh negative status during : Status: Acute Code(s): O26.899 - Other specified related conditions, unspecified trimester; Z67.91 - Unspecified blood type, Rh negative Meds Home Medications and Allergies Home Medications Medication Instructions Recorded Confirmed Type vits no.126-ferrous fum 1 tab PO DAILY Supplement 03/26/23 09/09/23 History 28 mg iron-folic acid 800 mcg tablet (Classic ) albuterol sulfate 90 mcg/actuation 1 inh inhalation Q6HP PRN 09/09/23 09/09/23 History aerosol inhaler Shortness Of Breath hydroxyzine HCl 25 mg tablet 25 mg PO Q6H PRN itching #30 tabs 09/11/23 Rx ibuprofen 800 mg tablet 800 mg PO Q8H PRN pain #20 tabs 09/11/23 Rx oxycodone 5 mg tablet 5 mg PO Q6H PRN pain #12 tabs 09/11/23 Rx New Prescriptions to Start Prescriptions: hydroxyzine HCl Jessica Hoyt ibuprofen Jessica Hoyt oxycodone Jessica Hoyt Allergies Allergy/AdvReac Type Severity Reaction Status Date / Time erythromycin base Allergy swelling Verified 09/04/23 08:37 [From E-Mycin] latex Allergy Verified 09/04/23 08:37 Discharge Plan Disposition Patient Disposition: Home, Self-Care Condition: Good Discharge Order Discharge Orders: Discharge Order (Routine); Ordered 09/11/23 Ordered By: Jessica Hoyt Follow up Plan Follow up with: Jessica Hoyt DO [Staff Physician] - 09/21/23 9:00 am Prescriptions/Medication Reconciliation: New ibuprofen 800 mg tablet 800 mg PO Q8H PRN (Reason: pain) Qty: 20 0RF oxycodone 5 mg tablet 5 mg PO Q6H PRN (Reason: pain) Qty: 12 0RF hydroxyzine HCl 25 mg tablet 25 mg PO Q6H PRN (Reason: itching) Qty: 30 0RF Continued Classic 28 mg iron- 800 mcg tablet 1 tab PO DAILY albuterol sulfate 90 mcg/actuation HFA aerosol inhaler 1 inh inhalation Q6HP PRN (Reason: Shortness Of Breath) Problem Reconciliation Problems Reviewed?: Yes Patient Discharge Instructions ACTIVITY: Limited activity DIET: continue same diet and regular diet Additional Instructions: Discharge: 1. Take 800 mg Ibuprofen every 8 hours as needed for pain. You can also take 500-1000 mg of Tylenol in between doses, every 6-8 hours. If pain persists you can take Oxycodone 5 mg, 1 tablet every 4-6 hours or more as needed. 2. Nothing in the vagina for 6 weeks - no intercourse, douching or tampons. No tub baths/hot tubs or swimming pools - Drink plenty of fluids. - No strenuous activity or driving until released by your doctor. - Don't lift anything heavier than your . 3. Reasons to return to L&D or call On-Call doctor - fever (greater than 100.4) - heavy vaginal bleeding (soaking through 1 pad in less than 2 hours) - vaginal discharge (malodorous and/or purulent) - severe headaches not resolved by medication or rest and leg tenderness/edema 4. depression/blues - Normal to feel anxious/overwhelmed for first 2 weeks - Talk to your doctor if: severe anxiety, trouble bonding with baby, withdrawing from other family members, thoughts of harming yourself or others Patient Instructions: Depression, Hemorrhage, DI for , DI for Pre-eclampsia, [facility] Post Discharge Instructions Providers Primary Care Provider: Pravin Lei Admit Provider: Jessica Hoyt Attending Provider: Jessica Hoyt
[2023-09-11] MEDS: diphenhydrAMINE 25MG CAPSULE 25 MG PO (11:53)
== END 2023-09-11 17:20 | disposition home or self-care (01) | DRG 784 ==
PROVIDERS: Admitting Provider Obstetrics & Gynecology; PCP Family Medicine; Visit Provider Obstetrics & Gynecology
DX: O30.043 Twin pregnancy, dichorionic/diamniotic, third trimester (principal); O99.324 Drug use complicating childbirth; Z3A.38 38 weeks gestation of pregnancy; Z37.2 Twins, both liveborn; O99.334 Smoking (tobacco) complicating childbirth; Z30.2 Encounter for sterilization; F17.210 Nicotine dependence, cigarettes, uncomplicated
CPT/HCPCS: 59514; 58700; 59025; 80053; 80307; 81001; 85007; 85025; 85461; 86850; 86870; 88302; 88307; 94761; C9290; G0283; J2405; J2790

== ENCOUNTER 2024-12-13 13:11 | Outpatient (CLI) | payer MEDICAID, SELFPAY ==
[2024-12-13 18:40] LABS: HIV Combo NEGATIVE (Negative)
[2024-12-13 19:39] LABS: Hepatitis C Ab Qual. W/ RFX NEGATIVE (Negative)
[2024-12-14 08:51] LABS: RPR W/RFX Titers Nonreactive (Nonreactive)
[2024-12-15 22:03] LABS: Neisseria gonorrhoeae, NAA Negative (Negative)
[2024-12-19 06:09] LABS: HSV-1 DNA Negative (Negative); HSV-2 DNA Negative (Negative)
== END 2024-12-13 23:59 | disposition home or self-care (01) ==
LOC: LAB.DROPOF 12-14 10:18
PROVIDERS: PCP Nurse Practitioner Family; Visit Provider Nurse Practitioner Family
DX: Z20.2 Contact with and (suspected) exposure to infections with a predominantly sexual mode of transmission (principal)
CPT/HCPCS: 86592; 86803; 87389; 87491; 87529; 87591